=== PATIENT | male | born 1945 | race Caucasian/White ===

== ENCOUNTER 2019-03-03 12:19 | Inpatient (IN) | payer OTHER ==
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
[2019-03-03] MEDS ORDERED: HYDROmorphONE/DILAUDID 1 MG/ML INJ ONE ×3 (14:21→19:54)
[2019-03-03] MEDS ORDERED: ONDANSETRON 4 MG/2 ML VIAL ONE ×2 (14:22→17:36)
[2019-03-03] MEDS ORDERED: ONDANSETRON 4 MG/2 ML VIAL IVP ONE (14:22)
[2019-03-03] MEDS ORDERED: HYDROmorphONE/DILAUDID 2 MG/ML INJ IVP ONE (14:22)
[2019-03-03 14:53] LABS: PLATELET COUNT 162 10^3/uL (150-400)
[2019-03-03] MEDS ORDERED: PROMETHAZINE HCL 25 MG/ML INJ IVP PRN (15:04)
[2019-03-03] MEDS ORDERED: ACETAMINOPHEN 325 MG TAB PO PRN (15:04)
[2019-03-03] MEDS ORDERED: HYDROmorphONE/DILAUDID 1 MG/ML INJ IVP PRN (15:04)
[2019-03-03] MEDS ORDERED: oxyCODONE IR 5 MG TAB PO PRN (15:04)
[2019-03-03] MEDS ORDERED: ONDANSETRON 4 MG/2 ML VIAL IVP PRN ×2 (15:04→18:39)
[2019-03-03] MEDS ORDERED: NS 1,000 ML IV SCH (15:15)
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
[2019-03-03] MEDS ORDERED: CEFAZOLIN 2 GM/DEXTROSE/100 ML BAG IV ONE (16:45)
[2019-03-03] MEDS ORDERED: LR 1,000 ML IV ONE (16:50)
[2019-03-03] MEDS ORDERED: BUPIVACAINE 0.5% 30 ML SDV ONE (16:54)
[2019-03-03] MEDS ORDERED: ceFAZolin 2 GM/DEXTROSE 100 ML IV ONE (17:10)
[2019-03-03] MEDS ORDERED: PROPOFOL 200 MG/20 ML VIAL ONE (17:36)
[2019-03-03] MEDS ORDERED: LIDOCAINE 2% 2 ML INJ ONE ×3 (17:36)
[2019-03-03] MEDS ORDERED: fentaNYL 100 MCG/2 ML INJ ONE (17:36)
[2019-03-03] MEDS ORDERED: ROCURONIUM 50 MG/5 ML VIAL ONE (17:36)
[2019-03-03] MEDS ORDERED: DEXAMETHASONE 4 MG/ML VIAL ONE (17:36)
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
--- NOTE | 2019-03-03 18:05 | PDANEPAE ---
ANE History of Present Illness tfn ANE Past Medical History - Cardiovascular History Hx Hypertension: No Hx Arrhythmias: No Hx Chest Pain: No Hx Coronary Artery / Peripheral Vascular Disease: No Hx CHF / Valvular Disease: No Hx Palpitations: No - Pulmonary History Hx COPD: No Hx Asthma/Reactive Airway Disease: No Hx Recent Upper Respiratory Infection: No Hx Oxygen in Use at Home: No Hx Sleep Apnea: No - Neurologic History Hx Cerebrovascular Accident: No Hx Seizures: No Hx Dementia: No - Endocrine History Hx Diabetes: No Hypothyroid: No Hyperthyroid: No Obesity: no - Renal History Hx Renal Disorders: No - Liver History Hx Hepatic Disorders: No ANE Review of Systems Review of Systems: - Exercise capacity Exercise capacity: >=4 METS ANE Patient History - Allergies Allergies/Adverse Reactions: No Known Allergies Allergy (Unverified 11/02/12 11:45) - Home Medications Home medications: home medication list seen and reviewed Home Medications: NK [No Known Home Meds] 03/03/19 [Last Taken Unknown] - NPO status NPO Status: no food or drink >8 hours NPO Since - Liquids (Date): 03/03/19 NPO Since - Liquids (Time): 11:00 NPO Since - Solids (Date): 03/03/19 NPO Since - Solids (Time): 09:15 - Anes Hx Anes Hx: no prior problems - Smoking Hx Smoking Status: Never smoked - Alcohol Use Alcohol Use: Rarely ANE Labs/Vital Signs - Labs Result Diagrams: 03/03/19 12:23 03/03/19 12:23 - Vital Signs Blood Pressure: 128/70 Heart Rate: 71 Respiratory Rate: 16 O2 Sat (%): 96 Height: 172.72 cm Weight: 60.328 kg ANE Physical Exam - Airway Mallampati Score: Class 2 Mouth exam: normal dental/mouth exam - Pulmonary Pulmonary: no respiratory distress - Cardiovascular Cardiovascular: regular rate and rhythym - ASA Status ASA Status: I ANE Anesthesia Plan Anesthesia Plan: GA w LMA
[2019-03-03] MEDS ORDERED: NALOXONE HCL 0.4 MG/ML INJ IVP PRN (18:39)
[2019-03-03] MEDS ORDERED: LR 500 ML IV PRN (18:39)
[2019-03-03] MEDS ORDERED: ALBUTEROL 3 ML DEYVIAL IH PRN (18:39)
[2019-03-03] MEDS ORDERED: SUGAMMADEX SODIUM 200 MG/2 ML VIAL IVP ONE (18:51)
[2019-03-03] MEDS ORDERED: OXYCODONE/APAP 5/325 TAB PO PRN (18:55)
--- NOTE | 2019-03-03 18:55 | POSTOPPROG ---
Post Op Note Date of Operation: 03/03/19 Surgeon: Marco Antonio Mejia Anesthesiologist: Shakir Anesthesia: GET(General Endotracheal) Pre-op Diagnosis: R hip fx Post-op Diagnosis: same Indication: above Procedure: R TFN Inf/Abcess present in the surg proc area at time of surgery?: No EBL: 50-100
--- NOTE | 2019-03-03 19:01 | POSTANESTH ---
Post Anesthetic Evaluation Cardiovascular Status: Normal, Stable Respiratory Status: Normal, Stable Level of Consciousness/Mental Status: Can Participate in Eval Pain Control: Adequate, Prn Tx Ordered Nausea/Vomiting Control: Adequate, Prn Tx Ordered Complications Possibly Related to Anesthesia: None Noted
[2019-03-03] MEDS: HYDROmorphONE/DILAUDID 1 MG/ML INJ IVP PRN ×6 (19:11→20:15)
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
[2019-03-03] MEDS ORDERED: OXYCODONE/APAP 5/325 TAB ONE (20:31)
[2019-03-03] MEDS: HYDROCODONE/APAP 5/325 TAB PO PRN (23:34)
[2019-03-04] MEDS: HYDROCODONE/APAP 5/325 TAB PO PRN ×3 (04:32→19:41)
[2019-03-04 05:20] LABS: PLATELET COUNT 125 10^3/uL (150-400)
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
[2019-03-04] MEDS: ENOXAPARIN 40 MG/0.4 ML SYR SC SCH (08:59)
[2019-03-04] MEDS ORDERED: LACTULOSE 20 GM/30 ML UDCUP PO PRN (11:19)
[2019-03-04] MEDS ORDERED: BISACODYL 10 MG SUPP PR PRN (11:19)
[2019-03-04] MEDS ORDERED: MAGNESIUM HYDROXIDE 30 ML UDCUP PO PRN (11:19)
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
[2019-03-04] MEDS: ONDANSETRON DISINTEGRATING 4 MG TAB PO PRN (18:21)
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
[2019-03-04] MEDS: SENNOSIDES/DOCUSATE SODIUM TAB PO SCH (21:40)
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
[2019-03-05] MEDS: ENOXAPARIN 40 MG/0.4 ML SYR SC SCH (08:57)
[2019-03-05] MEDS: SENNOSIDES/DOCUSATE SODIUM TAB PO SCH ×2 (08:58→20:37)
[2019-03-05] MEDS: HYDROCODONE/APAP 5/325 TAB PO PRN ×3 (08:58→20:36)
[2019-03-05] MEDS: POLYETHYLENE GLYCOL 3350 17 GM PKT PO PRN (11:12)
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
[2019-03-06] MEDS: CYCLOBENZAPRINE 10 MG TAB PO PRN ×3 (05:43→13:09)
[2019-03-06] MEDS: ENOXAPARIN 40 MG/0.4 ML SYR SC SCH (08:35)
[2019-03-06] MEDS: SENNOSIDES/DOCUSATE SODIUM TAB PO SCH ×2 (08:36→21:55)
[2019-03-06] MEDS: HYDROCODONE/APAP 5/325 TAB PO PRN (08:37)
[2019-03-06] MEDS: ONDANSETRON DISINTEGRATING 4 MG TAB PO PRN (08:44)
[2019-03-06] MEDS: POLYETHYLENE GLYCOL 3350 17 GM PKT PO PRN (08:45)
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
[2019-03-06] MEDS ORDERED: oxyCODONE IR 5 MG TAB PO PRN (13:23)
[2019-03-06] MEDS ORDERED: BISACODYL 10 MG SUPP PR ONE (13:38)
[2019-03-06] MEDS: METHOCARBAMOL 750 MG TAB PO SCH ×2 (14:19→21:55)
[2019-03-06] MEDS: oxyCODONE IR 5 MG TAB PO PRN ×2 (14:20→21:58)
--- NOTE | 2019-03-06 16:17 | ASMTCMCOM ---
CM Note CM Note Notes: CM spoke with pt in the room and with hospitalist. Pt was accepted by [facility] pending insurance authorization. They only have one bed available tomorrow, so if pt does not get authorization tomorrow, a bed may not be available later in the week. Pt is stable for discharge. Referral sent to [facility] as that is pt's alternative choice. CM to follow. D/C Plan: [facility] pending insurance auth Date Signed: 03/06/2019 04:16 PM Electronically Signed By:Ally Parry RN
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
[2019-03-06] MEDS: ACETAMINOPHEN 500 MG TAB PO SCH ×2 (17:10→21:59)
[2019-03-06] MEDS: DIAZEPAM 2 MG TAB PO PRN (21:58)
[2019-03-07] MEDS: oxyCODONE IR 5 MG TAB PO PRN ×3 (05:27→17:53)
[2019-03-07] MEDS: ACETAMINOPHEN 500 MG TAB PO SCH ×3 (05:27→21:47)
[2019-03-07] MEDS: ENOXAPARIN 40 MG/0.4 ML SYR SC SCH (08:11)
[2019-03-07] MEDS: SENNOSIDES/DOCUSATE SODIUM TAB PO SCH ×2 (08:11→21:49)
[2019-03-07] MEDS: POLYETHYLENE GLYCOL 3350 17 GM PKT PO PRN (08:11)
[2019-03-07] MEDS: METHOCARBAMOL 750 MG TAB PO SCH ×3 (08:11→21:48)
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
[2019-03-07] MEDS ORDERED: IBUPROFEN 200 MG TAB PO PRN (09:32)
[2019-03-07] MEDS ORDERED: IBUPROFEN 600 MG TAB PO ONE (09:32)
[2019-03-07] MEDS: GABAPENTIN 100 MG CAP PO SCH ×3 (09:45→21:48)
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
[2019-03-07] MEDS: POLYETHYLENE GLYCOL 3350 17 GM PKT PO SCH ×2 (11:38→21:49)
[2019-03-07] MEDS: DIAZEPAM 2 MG TAB PO PRN (13:19)
--- NOTE | 2019-03-07 16:42 | ASMTCMCOM ---
CM Note CM Note Notes: [facility] called CM this am and reported he had been authorized for SNF. [facility] did not hear back on their auth from [facility]. Today there are no more available beds at [facility], so pt will need to dc to [facility]. Pt is unhappy about this but unwilling to go to an [facility] outside of [place] and does not as of yet have auth. Pt was constipated today so could not discharge. CM to follow. D/C Plan: [facility] Date Signed: 03/07/2019 04:41 PM Electronically Signed By:Ally Choudhury. STEWART
[2019-03-07] MEDS: IBUPROFEN 200 MG TAB PO PRN (17:53)
[2019-03-08 05:00] LABS: PLATELET COUNT 110 10^3/uL (150-400)
[2019-03-08] MEDS: ACETAMINOPHEN 500 MG TAB PO SCH ×3 (05:46→21:05)
[2019-03-08] MEDS: POLYETHYLENE GLYCOL 3350 17 GM PKT PO SCH ×2 (08:13→21:08)
[2019-03-08] MEDS: ENOXAPARIN 40 MG/0.4 ML SYR SC SCH (08:14)
[2019-03-08] MEDS: GABAPENTIN 100 MG CAP PO SCH ×3 (08:14→21:07)
[2019-03-08] MEDS: SENNOSIDES/DOCUSATE SODIUM TAB PO SCH ×2 (08:14→21:07)
[2019-03-08] MEDS: METHOCARBAMOL 750 MG TAB PO SCH ×3 (08:15→21:07)
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
[2019-03-08] MEDS ORDERED: MAGNESIUM CITRATE 300 ML BOTTLE PO ONE (09:28)
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
[2019-03-09] MEDS: ACETAMINOPHEN 500 MG TAB PO SCH (06:07)
[2019-03-09 07:42] VITALS: BP 117/72
[2019-03-09] MEDS: SENNOSIDES/DOCUSATE SODIUM TAB PO SCH (07:55)
[2019-03-09] MEDS: METHOCARBAMOL 750 MG TAB PO SCH (07:56)
[2019-03-09] MEDS: GABAPENTIN 100 MG CAP PO SCH (07:56)
[2019-03-09] MEDS: ENOXAPARIN 40 MG/0.4 ML SYR SC SCH (07:56)
[2019-03-09] MEDS: POLYETHYLENE GLYCOL 3350 17 GM PKT PO SCH (07:57)
[2019-03-09] MEDS: IBUPROFEN 200 MG TAB PO PRN (08:19)
--- NOTE | 2019-03-09 08:57 | PDIAF ---
- Diagnosis Diagnosis: Hip fx Code Status: Full Code - Medication Management Discharge Medications: electronically signed and located in the Home Medication List. PICC Care - Routine: N/A - Orders Services needed: Registered Nurse, Physical Therapy, Occupational Therapy Diet Recommendation: no restrictions on diet Additional Instructions: RLE wt bearing as tolerated and rom as tolerated RUE 1 lbs wt limit, may use platform walker,stay in splint lovenox for dvt prophaxsis 10 days, then aspirin 325mg po q day for 4 weeks after that Nursing translation: RUE-right arm RLE-right leg rom-range of motion wt-weight - Follow Up Care Current Providers and Referrals: Radha Marcos MD [Primary Care Provider] - As per Instructions Marco Antonio Mejia MD [Medical Doctor] - follow up in 10 days
[2019-03-09] MEDS: ONDANSETRON DISINTEGRATING 4 MG TAB PO PRN (09:24)
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
--- NOTE | 2019-03-09 10:50 | ASMTLACE ---
PAULAE Length of stay for Answers: 4-6 days current admission Acuity / Level of Answers: Yes Care: Did the patient have an inpatient admission? # of Emergency department Answers: 1-2 visits in the last 6 months Score: 8 Date Signed: 03/09/2019 10:49 AM Electronically Signed By:Cecilia Regalado RN
--- NOTE | 2019-03-09 11:06 | ASMTDCNOTE ---
Case Management Discharge Discharge Order Complete? 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 Ella at [facility] notified, RN to call report. Letter of hospitalization given to pt and . Date Signed: 03/09/2019 10:54 AM Electronically Signed By:Cecilia Regalado RN
[2019-03-09] MEDS: oxyCODONE IR 5 MG TAB PO PRN (12:35)
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
== END 2019-03-09 12:41 | DRG 481 ==
LOC: EDUNIT# → F3N 20:55
PROVIDERS: ADMIT Internal Medicine; ATTEND Internal Medicine
PROC: 0QS636Z Reposition Right Upper Femur with Intramedullary Internal Fixation Device, Percutaneous Approach (ICD-10-PCS; principal; 2019-03-03 17:15)
DX: S72.141A Displaced intertrochanteric fracture of right femur, initial encounter for closed fracture (principal); S42.401A Unspecified fracture of lower end of right humerus, initial encounter for closed fracture; S22.31XA Fracture of one rib, right side, initial encounter for closed fracture; S42.031A Displaced fracture of lateral end of right clavicle, initial encounter for closed fracture; V10.0XXA Pedal cycle driver injured in collision with pedestrian or animal in nontraffic accident, initial encounter; Y92.482 Bike path as the place of occurrence of the external cause; E87.1 Hypo-osmolality and hyponatremia; D64.9 Anemia, unspecified; K59.00 Constipation, unspecified; Z96.611 Presence of right artificial shoulder joint
CPT/HCPCS: 96374; 97110-GP; 97116-GP; 97162-GP; 97166-GO; 97530-GO; 97530-GP; 97535-GO; A4565; C1713; J0690; J1100; J1170; J1650; J2405; J2704; J3010